=== PATIENT | female | born 1935 | race Hispanic/Latino ===

== ENCOUNTER 2017-12-29 08:31 | Outpatient (CLI) | payer MEDICARE ==
--- NOTE | 2017-12-29 15:44 | Mammography Report ---
BILATERAL DIGITAL SCREENING MAMMOGRAM with CAD : 12/29/17 08:31:00 CLINICAL: Routine screening. COMPARISON:01/13/16 FINDINGS: The breasts are heterogeneously dense, which may obscure small masses. No new mass, architectural distortion or suspicious calcifications. IMPRESSION: No mammographic evidence of malignancy. BI-RADS CATEGORY: 2 -- Benign RECOMMENDATION: Routine mammographic screening in one year. COMMENT: Patient follow-up letters are generated by our [email or web address] application.
== END 2017-12-29 08:32 | disposition home or self-care (01) ==
LOC: SPVWC 08:31
DX: Z12.31 Encounter for screening mammogram for malignant neoplasm of breast (principal)
CPT/HCPCS: 77067